=== PATIENT | male | born 1990 | race Caucasian/White ===

== ENCOUNTER 2018-03-26 11:56 | Emergency (ER) | payer OTHER, SELFPAY ==
[2018-03-26 12:02] VITALS: BP 139/88; PULSE 85; RESP 16; TEMP 37; O2SAT 100; BMI 29.0
--- NOTE | 2018-03-26 13:22 | PC.NURSE ---
on arrival pt pale and diaphoretic, placed on supine position, pt remain alert and awake, improved with supine position. spouse at bs.
--- NOTE | 2018-03-26 13:25 | PC.NURSE ---
steri strip applied by provider.
[2018-03-26 13:28] VITALS: BP 126/92; PULSE 75; RESP 15; O2SAT 100
--- NOTE | 2018-03-26 17:17 | ED_ITS ---
HPI - Wound/Laceration <JANIE Ndiaye - Last Filed: 03/26/18 17:18> General Chief Complaint: Wound/Laceration Stated Complaint: laceration to left index finger from a knife Time Seen by Provider: 03/26/18 12:48 Source: patient and family Mode of arrival: ambulatory Limitations: no limitations History of Present Illness HPI narrative: Patient is a 27-year-old male who presents with chief complaint of laceration to his left index finger by a knife this morning. He states his tetanus 3 years ago. He denies any possibility of foreign body. He denies any decreased range of motion. This happened just prior to arrival. He states he put pressure on the cut afterwards. He states he cut it with a woodworking knife. Review of Systems <JANIE Ndiaye - Last Filed: 03/26/18 17:18> Review of Systems GENERAL: Denies chills, fatigue, malaise, fever, sweats. HEENT: Denies sinus pain, ear pain, sore throat, difficulty swallowing, dizziness. RESPIRATORY: Denies dyspnea, cough, wheezing, hemoptysis, sputum. CARDIOVASCULAR: Denies chest pain, palpitations, orthopnea, edema, GASTROINTESTINAL: Denies nausea, vomiting, abdominal pain, diarrhea, constipation, melena. : Denies dysuria, frequency, incontinence, hematuria, urinary retention. MUSCULOSKELETAL: denies weakness, joint pain, or bony pain SKIN: See HPI NEUROLOGIC: Denies weakness, headache, numbness, change in speech, confusion, seizures, incoordination. PSYCHIATRIC: No concerning psychosocial issues. 12 point review of systems is negative except for those stated above Exam <JANIE Ndiaye - Last Filed: 03/26/18 17:18> Narrative Exam Narrative: GENERAL: This is a well-nourished, well-developed patient, appears nervous HEAD: Atraumatic. Normocephalic. No temporal or scalp tenderness. EYES: Pupils equal round and reactive. Extraocular motions intact. No scleral icterus. No injection or drainage. ENT: Nose without bleeding, purulent drainage or septal hematoma. Throat without erythema, tonsillar hypertrophy or exudate. Uvula midline. Airway patent. NECK: Trachea midline. No JVD or lymphadenopathy. Supple, nontender, no meningeal signs. CARDIOVASCULAR: Regular rate and rhythm RESPIRATORY: No increased respiratory effort. No cough on exam. EXTREMITIES: Full range of motion noted left index finger. Capillary refill less than 2 sec less than left index finger. Positive peripheral pulses left hand. BACK: Nontender without deformity or crepitance. No flank tenderness. NEURO: AOx3. SKIN: 1.5 cm avulsion laceration lateral aspect of left index finger. Through dermis. No muscle or tendon involvement. No obvious foreign bodies. Laceration is well approximated. Initial Vital Signs Initial Vital Signs: Vital Signs Temperature 98.6 F 03/26/18 12:02 Pulse Rate 85 03/26/18 12:02 Respiratory Rate 16 03/26/18 12:02 Blood Pressure 139/88 03/26/18 12:02 Pulse Oximetry 100 03/26/18 12:02 <Ruth Albrecht DO - Last Filed: 03/29/18 08:45> Initial Vital Signs Initial Vital Signs: Vital Signs Temperature 98.6 F 03/26/18 12:02 Pulse Rate 85 03/26/18 12:02 Respiratory Rate 16 03/26/18 12:02 Blood Pressure 139/88 03/26/18 12:02 Pulse Oximetry 100 03/26/18 12:02 Procedures <JENIFER Ndiaye - Last Filed: 03/26/18 17:18> Laceration Repair Laceration 1: Site: hand (Left index finger) Side (If applicable): left Size (cm): 1.5 Description: linear and flap Depth: simple, single layer Pre-repair: wound explored, irrigated extensively (Cleansed with Hibiclens and sterile water) and deep structures intact Skin layer closed with: other (Steri-Strips x2) Course <JENIFER Ndiaye - Last Filed: 03/26/18 17:18> Vital Signs - 8 hr 03/26/18 12:02 03/26/18 13:28 Temperature 98.6 F Pulse Rate 85 75 Respiratory Rate 16 15 Blood Pressure 139/88 Blood Pressure [Right Arm] 126/92 H Pulse Oximetry 100 100 <DO Ayden De Guzman Last Filed: 03/29/18 08:45> Vital Signs - 8 hr 03/26/18 12:02 03/26/18 13:28 Temperature 98.6 F Pulse Rate 85 75 Respiratory Rate 16 15 Blood Pressure 139/88 Blood Pressure [Right Arm] 126/92 H Pulse Oximetry 100 100 MDM - Wound/Laceration <SHRADDHA Ndiaye-BC - Last Filed: 03/26/18 17:18> [facility] Narrative Medical decision making narrative: Patient presents with chief complaint of laceration to left index finger. His tetanus was within up-to-date. The laceration was copiously cleansed with Hibiclens as well as sterile water. I discussed the benefit of sutures versus Steri-Strips. Patient and elected for Steri-Strips. Discussed at length return precautions of signs of infection including redness, pus and fever. Patient declined x-ray to check for foreign body; no obvious foreign body found on exam or flushing. Patient was hemodynamically stable throughout his stay in the emergency department. No questions or concerns upon discharge. Discharge Plan Departure Patient Disposition: Home Clinical Impression: Laceration Discharge Date/Time: 03/26/18 13:48 Interventions: ED Discharge Assessment Last Done: 03/26/18 13:47 Instructions: DI for Laceration Repair Steri-Strips, DI for Laceration Repair - - Finger Activity Restrictions/Additional Instructions: Please monitor your finger for signs and symptoms of infection including redness , pus and fever. Please follow-up if any of those occur. We placed him in a splint to prevent you from bending your finger and reopening the cut. Follow up with primary care provider or come back to the emergency department if necessary. <Ruth Albrecht DO - Last Filed: 03/29/18 08:45> Cosign ED Attending Cosleviature Attestation: I was immediately available in the department for consultation. This documentation has been reviewed and I agree with assessment and plan. Supervised by Ruth Albrecht DO
== END 2018-03-26 13:48 | disposition home or self-care (01) ==
PROVIDERS: Emergency Provider Nurse Practitioner Family
DX: S61.211A Laceration without foreign body of left index finger without damage to nail, initial encounter (principal); W26.0XXA Contact with knife, initial encounter
CPT/HCPCS: 29130; 29515; 99283

== ENCOUNTER 2018-09-17 11:29 | Emergency (ER) | payer OTHER, SELFPAY ==
[2018-09-17 11:36] VITALS: BP 152/90; PULSE 79; RESP 25; TEMP 36.3; O2SAT 100
--- NOTE | 2018-09-17 11:38 | ED_ITS ---
HPI - Allergic Reaction General Chief complaint: Allergic Reaction Stated complaint: allergic reation, throat swelling Time Seen by Provider: 09/17/18 11:31 Source: patient Mode of arrival: ambulatory Limitations: no limitations History of Present Illness HPI narrative: 28M non smoker with a skin condition presents with chief complaint of an itchy, red, urticaria rash on chest, back and face which started this morning. He has the sensation of some swelling in his throat. He denies any difficulty swallowing or speaking. He has no trouble with breathing. He denies any exposure to new soaps, lotions, foods, medications or other potential sources. He has a skin condition which acts like eczema and he uses topical steroids. Today he used them without relief. Additionally he took Benadryl 50 mg p.o. 1 hour prior to arrival. He denies any chest pain, shortness of breath abdominal pain, nausea, vomiting or diarrhea MD complaint: allergic reaction, hives and facial swelling Onset (ago): hour(s) Exposure: unknown Symptoms: rash, itching and facial swelling Severity: mild Treatment prior to arrival: benadryl Previous Allergic Reaction History: none Related Data Previous Rx's Medication Instructions Recorded epinephrine 0.3 mg IM .once PRN #2 each 09/17/18 prednisone 50 mg PO DAILY #5 tab 09/17/18 Allergies Allergy/AdvReac Type Severity Reaction Status Date / Time No Known Drug Allergies Allergy Verified 09/17/18 11:39 Review of Systems Constitutional Denies chills, Denies fever(s), Denies lethargy and Denies weakness Eyes Denies change in vision, Denies eye discharge, Denies irritation and Denies loss of vision ENT Ears, Nose, Mouth, and Throat: Denies change in voice, Denies neck pain, Denies sore throat and Reports throat swelling Cardiovascular Denies chest pain, Denies irregular heart rhythm, Denies lightheadedness, Denies palpitations, Denies dyspnea, Denies dyspnea on exertion and Denies orthopnea Respiratory Denies cough, Denies dyspnea, Denies dyspnea on exertion and Denies wheezing Gastrointestinal Gastrointestinal: Denies abdominal pain, Denies change in bowel habits, Denies diarrhea, Denies nausea and Denies vomiting Genitourinary Denies hematuria, Denies flank pain, Denies urinary incontinence and Denies urinary urgency Musculoskeletal Denies neck pain Integumentary/Breasts Reports pruritus, Reports erythema, Reports rash, Reports skin swelling and Denies wounds Neurologic Denies confusion, Denies loss of vision and Denies weakness Psychiatric Denies anxiety, Denies confusion, Denies depression, Denies homicidal ideation and Denies suicidal ideation Endocrine Denies palpitations Hematologic/Lymphatic Denies easy bruising Allergic/Immunologic Reports throat swelling and Denies wheezing PFSH Social History Smoking Status: Never smoker Social History Smoking Status: Never smoker Exam Narrative Exam Narrative: GENERAL: This is a well-nourished, well-developed patient, in mild distress. HEAD: Atraumatic. Normocephalic. No temporal or scalp tenderness. EYES: Pupils equal round and reactive. Extraocular motions intact. No scleral icterus. No injection or drainage. ENT: Nose without bleeding, purulent drainage or septal hematoma. Throat without erythema, tonsillar hypertrophy or exudate. Uvula midline. Airway patent. NECK: Trachea midline. No JVD or lymphadenopathy. Supple, nontender, no meningeal signs. CARDIOVASCULAR: Regular rate and rhythm without murmurs, gallops, or rubs. RESPIRATORY: Clear to auscultation. Breath sounds equal bilaterally. No wheezes, rales, or rhonchi. GASTROINTESTINAL: Abdomen soft, non-tender, nondistended. No hepato- splenomegaly, or palpable masses. No guarding. EXTREMITIES: No clubbing, cyanosis, or edema. No joint tenderness, effusion, or edema noted. BACK: Nontender without deformity or crepitance. No flank tenderness. NEURO: AOx3. SKIN: pruritic, urticarial rash on chest, face, neck. Initial Vital Signs Initial Vital Signs: Vital Signs Temperature 97.4 F L 09/17/18 11:36 Pulse Rate 79 09/17/18 11:36 Respiratory Rate 25 H 09/17/18 11:36 Blood Pressure 152/90 H 09/17/18 11:36 Pulse Oximetry 100 09/17/18 11:36 Course Course Narrative: Patient feeling much better after the above-stated medications. He will be observed for a bit and then discharged on steroids with instructions to take [id number] antihistamines. Orders Ordered: Discontinued Medications Diphenhydramine HCl (Benadryl) 25 mg IV NOW ONE Stop: 09/17/18 11:32 Last Admin: 09/17/18 11:50 Dose: 25 mg Epinephrine HCl (Adrenalin) 0.5 mg IM NOW ONE Stop: 09/17/18 11:32 Last Admin: 09/17/18 11:41 Dose: 0.5 mg Famotidine (Pepcid) 20 mg in 50 mls @ 200 mls/hr IV NOW ONE Stop: 09/17/18 11:45 Last Admin: 09/17/18 11:42 Dose: 200 mls/hr Methylprednisolone (Solu-Medrol 125 Mg Vial) 125 mg IV NOW ONE Stop: 09/17/18 11:32 Last Admin: 09/17/18 11:41 Dose: 125 mg Vital Signs - 8 hr 09/17/18 11:36 09/17/18 11:58 Temperature 97.4 F L Pulse Rate 79 64 Respiratory Rate 25 H 16 Blood Pressure 152/90 H Blood Pressure [Right Arm] 125/68 Pulse Oximetry 100 100 Discharge Plan Departure Patient Disposition: Home Clinical Impression: Urticaria Allergic reaction Qualifiers: Encounter type: initial encounter Qualified Code(s): T78.40XA - Allergy, unspecified, initial encounter Discharge Date/Time: 09/17/18 12:51 Interventions: ED Discharge Assessment Last Done: 09/17/18 12:51 Instructions: DI for Hives Activity Restrictions/Additional Instructions: *You have been diagnosed with [ allergic reaction ] *What to do: *Take medications as directed. You've been given a prescription for a steroid (Prednisone) which should be started tomorrow. Also, please take over the counter Benadryl and Pepcid as directed on the packaging *Follow up with your primary care provider in 2-3 days, call for an appointment. Let them know you were seen in the Emergency Department and that we ask that you be seen in follow up *Return to ER if you should have any new, worsening or concerning symptoms Prescriptions: New prednisone 50 mg tablet 50 mg PO DAILY Qty: 5 RF: 0 epinephrine 0.3 mg/0.3 mL auto-injector 0.3 mg IM .once PRN (Reason: anaphylaxis) Qty: 2 RF: 0 Referrals: Faustina Bowen DO [Primary Care Provider] -
[2018-09-17] MEDS: methylPREDNISolone 125 MG/2 ML VIAL IV (11:41)
[2018-09-17] MEDS: EPINEPHrine 1 MG/ML AMPUL 0.5 MG IM (11:41)
[2018-09-17] MEDS: FAMOTIDINE 20 MG/50 ML PIGGYBACK 200 MG IV (11:42)
[2018-09-17] MEDS: diphenhydrAMINE 50 MG/ML VIAL 25 MG IV (11:50)
[2018-09-17 11:58] VITALS: BP 125/68; PULSE 64; RESP 16; O2SAT 100
[2018-09-17 12:00] VITALS: BP 116/66; PULSE 55; RESP 18; O2SAT 100
[2018-09-17 12:45] VITALS: BP 117/63; PULSE 60; RESP 19; O2SAT 100
--- NOTE | 2018-10-04 16:55 | PC.NURSE ---
Late Entry: Famotidine completed 09/17/2018 at 1200 per Fernandez RN
== END 2018-09-17 12:51 | disposition home or self-care (01) ==
PROVIDERS: Emergency Provider Emergency Medicine; PCP Family Medicine
DX: L50.9 Urticaria, unspecified (principal); T78.40XA Allergy, unspecified, initial encounter
CPT/HCPCS: 36591; 96365; 96372; 96375; 99283; 99284; J0171; J1200; J2930